=== PATIENT | female | born 2000 | race Caucasian/White ===

== ENCOUNTER 2023-11-05 02:32 | Emergency (ER) | payer OTHER ==
[~2023-11-05] VITALS: Ht 162.6 cm; Wt 66.0 kg
[2023-11-05 02:38] VITALS: O2SAT 100
[2023-11-05 06:30] VITALS: BP 92/54; PULSE 78; RESP 15; TEMP 37.05852; O2SAT 99
[2023-11-05] MEDS: LACTATED RINGERS 1,000 ML IV SCH (07:34)
== END 2023-11-05 06:45 | disposition home or self-care (01) ==
LOC: ER 02:32
DX: F10.129 Alcohol abuse with intoxication, unspecified (principal); Y90.9 Presence of alcohol in blood, level not specified
CPT/HCPCS: 82962; 99283; Z7610